=== PATIENT | male | born 1950 | race Caucasian/White ===

== ENCOUNTER 2017-10-07 05:40 | Day surgery (SDC) | payer OTHER ==
[~2017-10-07] VITALS: Ht 188 cm; Wt 83.0 kg
--- NOTE | ~2017-10-07 | OP ---
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 POSTOPERATIVE DIAGNOSIS: Acutely incarcerated chronic initial neglected right inguinal hernia. No intestinal obstruction or gangrene. OPERATION PERFORMED: Open repair utilizing Perfix size extra large Light Plug and Patch. SURGEON: Sonal Ruvalcaba MD. 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 PREOPERATIVE NOTE: Mr. Lyons is a 67-year-old white male, [facility] prisoner, referred by the skilled nursing physicians. He was seen in the office with a chronic neglected fairly large, but reducible right inguinal hernia. He was scheduled for an outpatient elective repair. This morning in the preoperative evaluation, I was unable to reduce the hernia. He has no symptoms of bowel obstruction. He is brought to the operating room now for repair. DESCRIPTION OF PROCEDURE: Under anesthesia in supine position, I was still unable to reduce the patient's hernia. I made a transversely oriented right groin incision and exposed the external inguinal ring and spermatic cord. The external oblique aponeurosis was opened parallel to its fibers through the external ring and the cremasteric fibers were divided and the cord structures from very large indirect inguinal hernia sac, which passed down into the scrotum. The hernia sac was circumferentially dissected and then transected. The proximal portion was mobilized fully from the spermatic cord at the level above that of the internal ring. It was ligated with 2-0 Vicryl and then transected and the specimen sent for pathology. The stump of the hernia was resected in the preperitoneal space, which was developed with some blunt dissection and I inserted a size extra large PerFix Light hernia plug. This was sutured in place to the margins of the internal ring with interrupted simple 3-0 Vicryl. I then placed a patch over the floor of the canal and it was sutured circumferentially with interrupted 3-0 Vicryl. It was split and the arms of the patch embraced the cord structures and created a new internal ring and the patch was tucked up underneath the lateral external oblique aponeurosis. The wound was irrigated with Ancef and gentamicin solution and generously infiltrated with 0.25% Marcaine without epinephrine. The cord was replaced in normal anatomic position and reduced into the scrotum as much as possible, the external oblique aponeurosis was then approximated with interrupted simple 3-0 Vicryl suture. Marilou's fascia was approximated with interrupted inverted 3-0 Vicryl. The skin was closed with running intracuticular 4-0 Monocryl and Dermabond glue. A dressing of Maxorb Ag, Tegaderm, and Cavilon skin prep was applied. The patient was awakened from his anesthetic and in stable condition, was taken to the recovery room. Blood loss was trivial and unreplaced. All sponges, instruments, and needles were accounted for. No drain was used and the surgical specimens consisted of the resected portion of hernia sac. OPERATIVE REPORT [id number] ELENA LYONS PLAN: The patient will be discharged today to return to the [facility]. He will be scheduled to return to see me in my office just if the skilled nursing physicians feel it necessary. I will advise that he be allowed to return to activities as tolerated and I have written prescriptions for [place] 10/325 one p.o. q.4 hours p.r.n. pain, 30, no refills; Surfak 240, one p.o. b.i.d. for 1 month to keep stool soft and avoid constipation; and Flomax 0.4 mg 1 b.i.d. for 2 weeks to avoid postoperative urinary retention. The initial operative dressing should be left in place for 5-7 days before it is removed if possible and after that the wound will require soap and water cleansing and probably just minimal bandaging. TRANSINT:[id number] Voice Confirmation ID: [id number] DOCUMENT ID: [id number] SONAL RUVALCABA MD at 1126 CC: [id number] DICTATION DATE: 10/07/17 1137 WET CLEANER MACHINE: 10/07/17 1202 [facility] 10/07/17 [place] [id number] [place] [id number]
[2017-10-07 06:33] LABS: BASOPHILS 0.4 % (0-2); EOSINOPHILS 5.1 % (0-7); HEMATOCRIT 41.1 % (42.0-54.0); IMMATURE GRANULOCYTES 0.1 % (0-5); LYMPHOCYTES 38.4 % (15-50); MCH 31.6 pg (26.0-34.0); MCHC 34.1 g/dL (31.0-37.0); MCV 92.8 fL (80.0-100.0); MEAN PLATELET VOLUME 8.4 fL (7.4-10.4); MONOCYTES 7.4 % (2-11); NEUTROPHILS 48.6 % (40-80); PLATELET COUNT 215 10x3/uL (130-400); RBC 4.43 10x6/uL (4.20-6.10); RDW 13.6 % (11.5-14.5); WBC 7.7 10x3/uL (4.8-10.8)
[2017-10-07 07:04] LABS: CALC OSMOLALITY 281 mosm/kg (275-300); CARBON DIOXIDE 27.7 mmol/L (21.0-32.0); CHLORIDE - SERUM 105 mmol/L (98-107); CREATININE - SERUM 0.8 mg/dL (0.6-1.3); GLUCOSE 100 mg/dL (74-106); POTASSIUM - SERUM 4.1 mmol/L (3.5-5.1); SODIUM 140 mmol/L (136-145); UREA NITROGEN 22 mg/dL (7-18); eGFR NON AFRICAN AMERICAN > 90 mL/min (90-120)
[2017-10-07] MEDS ORDERED: NAPROSYN500 MG PO (07:18)
[2017-10-07 07:19] VITALS: BP 138/82; Ht 188 cm; Wt 83.0 kg
[2017-10-07 07:39] LABS: APTT 26.6 SECONDS (22.8-39.4); INR 0.9 (0.85-1.17); PROTIME 11.8 SECONDS (11.6-15.0)
== END 2017-10-07 13:40 ==
LOC: D.OPS 05:40
PROVIDERS: Surgery
DX: K40.30 Unilateral inguinal hernia, with obstruction, without gangrene, not specified as recurrent (principal); Z01.812 Encounter for preprocedural laboratory examination